=== PATIENT | male | born 1970 | race Caucasian/White ===

== ENCOUNTER → 2016-11-28 | Day surgery (SDC) | payer BC ==
[~2016-11-28] MED LIST: BUPIVACAINE HCL PF 0.25% 30 ML VIAL ONE; BUPIVACAINE/EPINEPHRINE 0.25% 50 ML VIAL ONE; LACTATED RINGER'S 1000 ML INJ 1,000 ML ONE; LORT5TAB PO; MIDAZOLAM HCL 2 MG/2 ML VIAL ONE; ONDANSETRON HCL 4 MG/2 ML VIAL IV PUSH ONE; PROPOFOL 500 MG/50 ML BTL IV ONE; TRIAMCINOLONE ACETONIDE 40 MG/ML VIAL ONE; ceFAZolin 2 GM PREMIX 50 ML ONE
--- NOTE | 2016-11-29 14:21 | MP ---
cc: MATHEUS KEATINGM DATE OF SURGERY: 11/28/2016. PREOPERATIVE DIAGNOSIS: Right foot foreign body deep soft tissue mass. POSTOPERATIVE DIAGNOSIS: Right foot foreign body deep soft tissue mass. OPERATIVE PROCEDURE PERFORMED: Excision of deep foreign body and soft tissue mass. ANESTHESIA: General with local, approximately 20 mL of 0.25% Marcaine with epinephrine. SPECIMEN OBTAINED: Deep wound culture. ESTIMATED BLOOD LOSS: Less than 30 mL. COMPLICATIONS: None. TOURNIQUET TIME: Approximately 64 minutes at a setting of 215 mmHg about the patient's right ankle. JUSTIFICATION FOR THE PROCEDURE: This is a pleasant 46-year-old male who likely sustained a puncture injury and has had pain in the area. There was a discussion he may have stepped on a [employer] tree ornament or a shard of glass. CT confirmed that there is a foreign body substance at the level of the third metatarsal approximately 6 to 8 mm deep to the soft tissue. It did not appear to involve the joint or the joint capsule. CT localization of the foreign body took place an hour before the surgery. The patient was educated on the risks and benefits of the surgery including but not limited to inability to excise the foreign body in toto, permanent numbness, scarring of the plantar forefoot, possible recurrence of pain and subsequent swelling and possible need for more surgery at a later date. DESCRIPTION OF THE PROCEDURE IN DETAIL: Under mild sedation, the patient was brought into the operating room and placed on the operating room table in the supine position. Following the induction of general anesthesia, local anesthesia was obtained about the forefoot utilizing standard block fashion. The patient's right foot was then scrubbed, prepped and draped in the usual aseptic fashion. The foot was elevated, exsanguinated and the previously placed midcalf tourniquet was inflated to 215 mmHg. Careful attention was made at this point upon examining the plantar right forefoot. The radiologist used the Skin-Scribe marker and the "X" was still present beneath the area where the foreign body was localized to be a CT. A linear incision was made in-between the third and fourth metatarsal heads to avoid metatarsal head weightbearing surface. The incision was made down through the epidermal / dermal junction. Sharp and blunt dissection was carried down to the deep adipose and fascia. At this time, careful loop dissection took place utilizing iris scissors, mosquito forceps as well as hemostats. Upon exploring the deep plantar fascia and down to the joint capsule of the third and fourth metatarsal heads, there was only noted to be inflamed fat lobules with a linear black substance but it appeared to have the clinical appearance of a malleable wood-like substance with the consistency of dissolving wood. No obvious metal or glass was appreciated. At this time, we used fluoroscopy to see if there was any shadowing of the foreign body. Intraoperative the CT was also visualized without breaking sterile field as to where the CT localized in this area where the CT showed the foreign body and excision of all of the lipomatous substance likely encasing the soft tissue mass was removed. The wound was flushed with copious amounts of normal saline and the deep interspace of the third was then explored. There was no foreign body. There was no nerve entrapment. There was no rupture of tendon or neurovascular structures. A deep culture was taken at this area. The wound was then closed in layers utilizing Vicryl. The skin was closed utilizing nylon. Upon relieving the tourniquet, there was a prompt hyperemic response to all digits without any delayed capillary fill time. A bulky bandage was placed. The patient was transferred from the operating room to the post-anesthesia care unit with all vital signs stable. The patient is heel transfer weight-bear only. He will ice, elevate and I will see the patient within three to five days. RENITA Carlin/CHRISTINE /8:39 AM /2:18 PM [id number]
== END | disposition home or self-care (01) ==
LOC: ESDC 12:14
PROVIDERS: ATTEND Podiatrist Foot & Ankle Surgery
DX: S91.341A Puncture wound with foreign body, right foot, initial encounter (principal); R22.41 Localized swelling, mass and lump, right lower limb
CPT/HCPCS: 00400; 28190; 76000; 87015; 87070; 87116; 87205; 87206; J0690; J2250; J2405; J3010; J7120; J3301